=== PATIENT | female | born 1960 | race African-American/Black ===

== ENCOUNTER 2021-12-13 01:15 | Emergency (ER) | payer MEDICAID, OTHER ==
[~2021-12-13] VITALS: Ht 160 cm; Wt 78.0 kg
[2021-12-13 04:21] LABS: BASOPHILS % 0.3 % (0.0-2.0); EOSINOPHILS % 3.3 % (0.0-5.0); HEMATOCRIT. 47.2 % (36.0-48.0); HEMOGLOBIN. 16.2 g/dL (12.0-16.0); LYMPHOCYTES % 16.2 % (20.0-50.0); MEAN CORPUSCULAR HEMOGLOBIN 23.8 pg (28.0-32.0); MEAN CORPUSCULAR VOLUME 69.4 fL (81.0-99.0); MONOCYTES % 6.5 % (2.0-8.0); NEUTROPHILS % 73.7 % (40.0-76.0); PLATELET 233 x1000/uL (130-400); RED BLOOD CELL COUNT 6.79 mill/uL (4.2-5.4); RED CELL DISTRIBUTION WIDTH 16.6 % (11.6-14.6)
[2021-12-13 04:30] LABS: CHLORIDE 104 mEq/L (98-107)
[2021-12-13] MEDS ORDERED: SODIUM CHLORIDE 0.9% 1,000 ML IV ONE (04:30)
[2021-12-13 04:54] LABS: CLARITY URINE CLEAR (CLEAR); COLOR URINE YELLOW (YELLOW); KETONES URINE NEGATIVE (NEGATIVE); LEUKOCYTE ESTERASE URINE NEGATIVE (NEGATIVE); NITRITE URINE NEGATIVE (NEGATIVE); OCCULT BLOOD URINE NEGATIVE (NEGATIVE); PROTEIN URINE NEGATIVE (NEGATIVE); SPECIFIC GRAVITY URINE 1.012 (1.005-1.030); UROBILINOGEN URINE 0.2 E.U./dL (0.2-1.0)
[2021-12-13 05:26] VITALS: BP 163/72
[2021-12-13 07:44] LABS: PLATELET ESTIMATE NORMAL
== END 2021-12-13 06:02 | disposition home or self-care (01) ==
LOC: ER 01:15
DX: I95.1 Orthostatic hypotension (principal); I10 Essential (primary) hypertension; Z98.890 Other specified postprocedural states
CPT/HCPCS: 36415; 70450; 71045; 80053; 81003; 84484; 85025; 93005; 96360; 99285; J7030

== ENCOUNTER 2022-06-23 08:52 | Emergency (ER) | payer OTHER ==
[~2022-06-23] VITALS: Ht 165.1 cm; Wt 69.0 kg
[2022-06-23 09:00] VITALS: BP 90/63
[2022-06-23] MEDS ORDERED: BO1 TP (10:51)
[2022-06-23] MEDS ORDERED: CLIN-194 MT (10:51)
== END 2022-06-23 11:07 | disposition home or self-care (01) ==
LOC: ER 08:52
DX: N76.4 Abscess of vulva (principal)
CPT/HCPCS: 99283

== ENCOUNTER 2022-11-28 12:37 | Emergency (ER) | payer OTHER ==
[~2022-11-28] VITALS: Ht 160 cm; Wt 84.0 kg
[~2022-11-28 12:37] MED LIST: BO1 TP; CLIN-194 MT
[2022-11-28 13:30] VITALS: BP 166/96
[2022-11-28] MEDS ORDERED: ACETAMINOPHEN 325MG TABLET PO ONE (15:00)
[2022-11-28] MEDS ORDERED: METHOCARBAMOL 750MG TABLET PO SCH (15:00)
[2022-11-28] MEDS ORDERED: LIDOCAINE 5% PATCH TOP SCH (15:00)
[2022-11-28] MEDS ORDERED: KETOROLAC 60MG/2ML VIAL IM ONE (15:00)
[2022-11-28] MEDS ORDERED: METH-653 MT (15:24)
[2022-11-28] MEDS ORDERED: TOPUD PO (15:24)
[2022-11-28] MEDS ORDERED: IBUP-2028 MT (15:24)
[2022-11-28] MEDS ORDERED: LIDO1ADH23 TP (15:24)
== END 2022-11-28 15:56 | disposition home or self-care (01) ==
LOC: ER 13:26
DX: M25.512 Pain in left shoulder (principal); I10 Essential (primary) hypertension; V49.9XXA Car occupant (driver) (passenger) injured in unspecified traffic accident, initial encounter; Y93.89 Activity, other specified; Y92.89 Other specified places as the place of occurrence of the external cause; Y99.8 Other external cause status
CPT/HCPCS: 71045; 96372; 99283; J1885; Z7610

== ENCOUNTER 2023-12-08 11:07 | Emergency (ER) | payer OTHER ==
[~2023-12-08] VITALS: Ht 160 cm; Wt 77.6 kg
[~2023-12-08 11:07] MED LIST changes: +AMLO10TA80 PO; +ASPI-1497 PO; -BO1 TP; -CLIN-194 MT; +CLOP-31 PO; +LIP40 PO; +LOSA50TA41 PO
[2023-12-08 11:20] VITALS: O2SAT 100
[2023-12-08] MEDS: ACETAMINOPHEN 325MG TABLET PO ONE (12:40)
[2023-12-08] MEDS ORDERED: ACET-2708 MT (13:26)
[2023-12-08 13:50] VITALS: BP 139/78; PULSE 91; RESP 17; TEMP 97.5
== END 2023-12-08 15:15 | disposition home or self-care (01) ==
LOC: ER 11:07
DX: S90.02XA Contusion of left ankle, initial encounter (principal); I10 Essential (primary) hypertension; Z86.73 Personal history of transient ischemic attack (TIA), and cerebral infarction without residual deficits; X58.XXXA Exposure to other specified factors, initial encounter; Y93.89 Activity, other specified; Y92.89 Other specified places as the place of occurrence of the external cause; Y99.8 Other external cause status
CPT/HCPCS: 73610; 93971; 99284

== ENCOUNTER 2024-01-04 14:12 | Emergency (ER) | payer MEDICAID, OTHER ==
[~2024-01-04] VITALS: Ht 160 cm; Wt 65.0 kg
[~2024-01-04 14:12] MED LIST changes: +ACET-2708 MT
[2024-01-04 14:21] VITALS: O2SAT 96
[2024-01-04 15:15] VITALS: BP 109/65; PULSE 55; RESP 18; TEMP 98.3
[2024-01-04] MEDS: IBUPROFEN 600MG TABLET PO ONE (15:15)
[2024-01-04] MEDS: ACETAMINOPHEN 500MG TABLET PO ONE (15:15)
[2024-01-04] MEDS ORDERED: LIDO700A15 TP (17:01)
[2024-01-04] MEDS ORDERED: ACET-2708 MT (17:01)
== END 2024-01-04 23:10 | disposition home or self-care (01) ==
LOC: ER 14:31
DX: M79.10 Myalgia, unspecified site (principal); R00.1 Bradycardia, unspecified; I10 Essential (primary) hypertension; Z86.73 Personal history of transient ischemic attack (TIA), and cerebral infarction without residual deficits; Z79.899 Other long term (current) drug therapy
CPT/HCPCS: 71045; 73560; 81025; 99284